=== PATIENT | male | born 1990 | race Two or more races ===

== ENCOUNTER 2021-08-05 23:39 | Emergency (ER) | payer OTHER ==
[~2021-08-05] VITALS: Ht 175.3 cm; Wt 77.1 kg
[2021-08-06] MEDS ORDERED: NEOMY/BACITRA/POLYMYXIN B OINT UD PACKET TP ONE (01:33)
[2021-08-06 01:40] VITALS: BP 126/88
--- NOTE | 2021-08-06 01:40 | NUR ---
Patient laceration on left hand sutured by Dr. Soto. Patient discharged to home in stable condition. Written and verbal after care instructions given. Patient verbalizes understanding of instructions. Stressed follow up or return to ER for worsening s/s.
== END 2021-08-06 01:40 | disposition home or self-care (01) ==
LOC: ER 23:58
DX: S61.412A Laceration without foreign body of left hand, initial encounter (principal); W26.0XXA Contact with knife, initial encounter; Y93.G1 Activity, food preparation and clean up; Y92.511 Restaurant or cafe as the place of occurrence of the external cause; Y99.0 Civilian activity done for income or pay; R03.0 Elevated blood-pressure reading, without diagnosis of hypertension
CPT/HCPCS: A4663; J3490